=== PATIENT | female | born 1955 | race Caucasian/White ===

== ENCOUNTER 2016-11-27 07:52 | Inpatient (IN) | payer OTHER ==
[~2016-11-27 07:52] MED LIST: ACETAMINOPHEN 325 MG TAB PO ONE; CALCIUM CHLORIDE 1 GM/10 ML INJ ONE; CEFAZOLIN 2 GM/DEXTR 100 ML IV ONE; CHLORHEXIDINE GLUC HIBICLENS 118 ML BTL TP ONE; DEXAMETHASONE 4 MG/ML VIAL IVP ONE; FAMOTIDINE 20 MG TAB PO ONE; ROPI/epiNEPH/KETOROLAC JOINT COCKTAIL IU ONE; SKIN ADHESIVE (DERMABOND) 1 EACH TP ONE; THROMBIN (RECOMBINANT) 5,000 UNIT VIAL TP ONE; ceFAZolin 1 GM/5 ML SYR ONE
[2016-11-27] MEDS ORDERED: LIDOCAINE 1% 5 ML SDV ONE (08:12)
[2016-11-27] MEDS ORDERED: ACETAMINOPHEN 325 MG TAB ONE (08:33)
[2016-11-27] MEDS ORDERED: CEFAZOLIN 2 GM/DEXTROSE/100 ML BAG IV ONE (08:33)
[2016-11-27] MEDS ORDERED: DEXAMETHASONE 4 MG/ML VIAL ONE (08:33)
[2016-11-27] MEDS ORDERED: FAMOTIDINE 20 MG TAB ONE (08:34)
[2016-11-27] MEDS ORDERED: CHLORHEXIDINE GLUC HIBICLENS 118 ML BTL TP ONE (08:34)
[2016-11-27] MEDS ORDERED: LIDOCAINE 1% 5 ML SDV ID PRN (08:46)
[2016-11-27] MEDS ORDERED: LR 1,000 ML IV ONE (08:46)
[2016-11-27] MEDS ORDERED: LIDOCAINE 2% 100 MG/5 ML SYR IVP ONE (09:27)
[2016-11-27] MEDS ORDERED: PROPOFOL/EMULSION 500 MG/50 ML BOTTLE IV ONE ×2 (09:27→12:23)
[2016-11-27] MEDS ORDERED: TEMAZEPAM 15 MG CAP PO PRN (10:47)
[2016-11-27] MEDS ORDERED: PROMETHAZINE HCL 25 MG/ML VIAL IVP PRN (10:47)
[2016-11-27] MEDS ORDERED: ONDANSETRON 4 MG/2 ML VIAL IVP PRN (10:47)
[2016-11-27] MEDS ORDERED: DIPHENOXYLATE/ATROPINE LOMOTIL 1 TAB PO PRN (10:47)
[2016-11-27] MEDS ORDERED: ONDANSETRON DISINTEGRATING 4 MG TAB PO PRN (10:47)
[2016-11-27] MEDS ORDERED: diphenhydrAMINE 25 MG CAP PO PRN (10:47)
[2016-11-27] MEDS ORDERED: PROMETHAZINE HCL 25 MG SUPPR PR PRN (10:47)
[2016-11-27] MEDS ORDERED: BISACODYL 10 MG SUPP PR PRN (10:47)
[2016-11-27] MEDS ORDERED: LACTULOSE 20 GM/30 ML UDCUP PO PRN (10:47)
[2016-11-27] MEDS ORDERED: traMADol 50 MG TAB PO PRN (10:47)
[2016-11-27] MEDS ORDERED: MAGNESIUM HYDROXIDE 30 ML UDCUP PO PRN (10:47)
[2016-11-27] MEDS ORDERED: PHARMACY PAIN CONSULT 1 EA MISC PRN (10:47)
[2016-11-27] MEDS ORDERED: POLYETHYLENE GLYCOL 3350 17 GM PKT PO PRN (10:47)
[2016-11-27] MEDS ORDERED: CYCLOBENZAPRINE 10 MG TAB PO PRN (10:47)
[2016-11-27] MEDS ORDERED: CALCIPOTRIENE TP PRN (10:52)
[2016-11-27] MEDS ORDERED: BETAMETHASONE TP PRN (10:52)
[2016-11-27] MEDS ORDERED: CLOBETASOL PROPIONATE TP PRN (10:52)
[2016-11-27] MEDS ORDERED: LR 1,000 ML IV SCH (11:00)
[2016-11-27] MEDS ORDERED: MIDAZOLAM 2 MG/2 ML VIAL ONE (11:00)
[2016-11-27] MEDS ORDERED: fentaNYL 100 MCG/2 ML INJ ONE ×2 (12:18→13:28)
[2016-11-27] MEDS ORDERED: HYDROmorphONE/DILAUDID 1 MG/ML SYR ONE (13:53)
--- NOTE | 2016-11-27 14:23 | DX ---
Two Views Right Knee: History: Postoperative followup. Comparison: None available. Findings: Postoperative changes of total knee arthroplasty are noted. Alignment is anatomic. No compl ication is seen. Impression: Status post total knee arthroplasty with no visible complications.
--- NOTE | 2016-11-27 14:38 | GOP ---
[f rep st] OPERATIVE REPORT DATE OF OPERATION: 11/27/2016 SURGEON: Mala Marcial MD SOCIAL SCIENTIST: Elieser Ocasio CFA ANESTHESIA: General with spinal. PREOPERATIVE DIAGNOSIS: Severe osteoarthritis, right knee. POSTOPERATIVE DIAGNOSIS: Severe osteoarthritis, right knee. PROCEDURE PERFORMED: Right total knee arthroplasty. FINDINGS: Preoperative x-rays of the patient's right knee demonstrated severe lateral compartment ar throsis with moderate patellofemoral and medial compartment arthrosis. At the time of surgery, this finding was confirmed. The patient had complete loss of the articular cartilage in the lateral atilio rtment. There was also severe wear of the patellofemoral joint. A [employer] Journey II total knee arthroplasty was implanted. A size 4 Oxinium coated femoral component was cemented into place, and a size 3 tibial base plate was utilized. This was also cemented into place. A 10 mm thick Jour shawn II cross-linked polyethylene insert was used in the metal backing of the tibia. A size 35 round patellar component was also cemented into place. Following implantation of the components, the knee achieved full extension and 135 degrees of flexion on the table. The patella tracked well throughout a range of motion. There was nice correction of the preoperative valgus deformity of the knee. ESTIMATED BLOOD LOSS: Less than 100 cc. DESCRIPTION OF PROCEDURE: The patient was taken to the operating room and placed in a supine positio n on the operating table. Following induction of adequate general and spinal anesthesia, the knee an d leg were prepped and draped in the usual sterile manner. The patient received 1 g of IV Ancef. Th e leg was elevated and exsanguinated, and the tourniquet inflated to 300 mmHg. The [facility] leg holde r was used throughout the procedure for positioning. A midline incision was made, extending from 2 f ingerbreadths above the superior pole of the patella distally to the tibial tubercle. Incision was c arried down through the subcutaneous tissue to the retinaculum of the knee. A medial parapatellar ar throtomy was performed. The patella was everted laterally, and the thickness of the patella was daly ured. An 8 mm thick poly cut was taken from the 20 mm patella. The patella was then placed in the l ateral gutter. The distal femoral drill hole was made, and then the intramedullary sean was placed in the femur for positioning of the distal femoral cutting block. Once it was positioned appropriately , it was pinned, and the distal femoral cut was made at +2 position. The cutting block was removed, and the femur was sized. The size 4 component was chosen as the best fit. The size 4 cutting block was then placed on the distal femur, and the anterior-posterior and chamfer cuts were made. The 4 tr ial component was placed on the distal femur, and then the notch was cleared with the reamer followed by the box osteotome. The femoral component was removed, and our attention was turned to the tibia. Intramedullary referencing was utilized on the tibial side as well. A drill hole was placed in the proximal tibia, and then the intramedullary guide was inserted, and the tibial cutting block was pos itioned based on a 9 mm thick lollipop insert, which was used to determine the thickness of the tibia l cut. The tibial guide was positioned and pinned, and then the tibial cut was made. The medial and lateral meniscus were excised. A large, loose body was removed from the posterior knee. The tibial component was then sized, and a size 3 was felt to be the best match, so it was pinned into place, a nd a trial reduction was performed with the components. A trial was performed with a 9 mm and a 10 m m thick polyethylene. The best fit was noted with a 10 mm thick polyethylene. The femoral component was then removed, and the keel punch was used in the tibia. The tibial trial was removed. The pantoja lla was drilled. In preparation for implantation. All of the bony surfaces were thoroughly irrigate d and dried, and then the cement was mixed. The tibial component was cemented followed by the femur and the patella. Pressure was held on all the components while the cement hardened. Excess cement w as removed from around the edges of the components. Once the cement was hard, the trial insert was r emoved from the tibia, and the 10 mm thick polyethylene was opened and inserted. The wound was thoro ughly irrigated, and the joint cocktail was placed in the posterior and anterior aspects of the joint . The retinaculum of the knee was closed using #2 FiberWire in an interrupted fashion. The tourniqu et was deflated, and hemostasis was obtained using the Bovie. Platelet gel was injected into the kiana p and superficial portions of the wound to enhance wound healing. The subcutaneous tissue was closed using 2-0 Vicryl, followed by 4-0 Vicryl in a running subcuticular fashion. Steri-Strips and steril e dressings were applied. The patient tolerated the procedure well. There were no complications. ESTIMATED BLOOD LOSS: Minimal. COUNTS: Final sponge and needle counts were correct. DISPOSITION: The patient was transported to the recovery room in good condition. /[id number]/MODL
[2016-11-27] MEDS: ACETAMINOPHEN 325 MG TAB PO SCH ×3 (15:42→23:22)
[2016-11-27] MEDS: oxyCODONE IR 5 MG TAB PO PRN ×2 (15:45→21:51)
[2016-11-27] MEDS: FAMOTIDINE 20 MG TAB PO SCH (20:13)
[2016-11-27] MEDS: ASPIRIN 325 MG TAB PO SCH (20:13)
[2016-11-27] MEDS: SENNOSIDES/DOCUSATE SODIUM TAB PO SCH (20:14)
[2016-11-27] MEDS: ceFAZolin 2 GM/DEXTROSE 100 ML IV SCH (20:14)
[2016-11-27 23:26] VITALS: RESP 16
[2016-11-28] MEDS: oxyCODONE IR 5 MG TAB PO PRN ×4 (03:11→13:56)
[2016-11-28] MEDS: ceFAZolin 2 GM/DEXTROSE 100 ML IV SCH (03:12)
[2016-11-28 05:36] LABS: HEMATOCRIT 33.6 % (38.0-47.0); HEMOGLOBIN 10.8 g/dL (12.6-16.3)
[2016-11-28] MEDS: ACETAMINOPHEN 325 MG TAB PO SCH ×2 (05:58→12:02)
[2016-11-28] MEDS: SENNOSIDES/DOCUSATE SODIUM TAB PO SCH (08:52)
[2016-11-28] MEDS: ASPIRIN 325 MG TAB PO SCH (08:53)
[2016-11-28] MEDS: FAMOTIDINE 20 MG TAB PO SCH (08:53)
[2016-11-28 09:00] VITALS: BP 109/56; PULSE 75; TEMP 97.7; O2SAT 95
[2016-11-28] MEDS ORDERED: FERROUS SULFATE 140 MG TAB.ER PO SCH (09:00)
[2016-11-28] MEDS ORDERED: PROGESTERONE,MICR 100 MG CAP PO SCH (09:00)
[2016-11-28] MEDS ORDERED: ESCITALOPRAM OXALATE 10 MG TAB PO SCH (09:00)
--- NOTE | 2016-11-28 13:03 | SOAPPROG ---
SOAP Progress Note Assessment/Plan: Assessment/Plan: 61y/o female POD#1 right TKA - stable and doing well - minimal pain, on oxycodone - has worked with PT - anxious to go home, f/u in 1 week, pt to call with any issues/concerns 11/28/16 13:00 Subjective: Minimal pain. Tolerated PT well, worked on stairs. Feeling less pain than pre- op. Very pleased with progress and anxious to go home Objective: Vital Signs Temp Pulse Resp BP Pulse Ox 36.5 C 75 16 109/56 L 95 11/28/16 08:00 11/28/16 08:00 11/28/16 08:00 11/28/16 08:00 11/28/16 08:00 Laboratory Results 11/28/16 04:57 11/27/16 11/28/16 11/29/16 05:59 05:59 05:59 Intake Total 3897 Output Total 2050 300 Balance 1847 -300 NAD, well appearing incision CDI, no erythema or active drainage dressing replaced, KRISTA bandage placed over knee minimal swelling ICD10 Worksheet Patient Problems: Problems Problem Status Diagnosed Arthritis of knee Acute - ICD10 Problem Qualifiers (1) Arthritis of knee
--- NOTE | 2016-11-28 13:13 | PDIAF ---
- Diagnosis Code Status: Full Code - Medication Management Discharge Medications: Medications to Continue on Transfer Acetaminophen [Tylenol Arthritis] 650 mg PO HS 11/15/16 [Last Taken 11/26/16 22: 00] Calcipotriene/Betamethasone [Taclonex Ointment] 1 kunal TP DAILY PRN 11/15/16 [ Last Taken 11/13/16] Clobetasol Propionate [Clobex] 1 kunal TP DAILY PRN 11/15/16 [Last Taken 11/13/16] Escitalopram Oxalate [Lexapro] 5 mg PO DAILY 11/15/16 [Last Taken 11/26/16 22:00 ] Progesterone,Micronized [Progesterone] 100 mg PO DAILY 11/15/16 [Last Taken 22:00] diphenhydrAMINE [Benadryl 25 MG (*)] 25 mg PO HS PRN 11/15/16 [Last Taken ] Estradiol [Vivelle-Dot 0.025MG (*)] 0.025 mg TD SUTH@0800 11/27/16 [Last Taken 11/26/16] Discharge Medications: Refer to the Discharge Home Medication list for PRN reason. PICC Care - Routine: N/A - Orders Services needed: Physical Therapy, Occupational Therapy Diet Recommendation: no restrictions on diet Diet Texture: Regular Texture Diet Josh Stockings Discontinue Date: continue active care x 14 days post-op Wound Care Instructions: keep incision clean and dry. keep covered with tegaderm
[2016-11-30] MEDS ORDERED: ESTRADIOL TD SCH (08:00)
[2016-11-30] MEDS ORDERED: ESTRADIOL VIVELLE 0.025 MG PATCH TD SCH (15:05)
== END 2016-11-28 14:17 | disposition home health service (06) | DRG 470 ==
LOC: F3N 07:52
PROVIDERS: ADMIT Orthopaedic Surgery; ATTEND Orthopaedic Surgery
DX: M17.11 Unilateral primary osteoarthritis, right knee (principal); M48.02 Spinal stenosis, cervical region
CPT/HCPCS: 97110-GP; 97116-GP; 97161-GP; 97165-GO; 97530-GP; C1713; J0171; J0690; J1100; J1170; J1885; J2001; J2250; J2405; J2704; J2795; J3010

== ENCOUNTER → 2017-01-25 | Outpatient (CLI) | payer OTHER ==
[~2017-01-25] MED LIST changes: -ACETAMINOPHEN 325 MG TAB PO ONE; -CALCIUM CHLORIDE 1 GM/10 ML INJ ONE; -CEFAZOLIN 2 GM/DEXTR 100 ML IV ONE; -CHLORHEXIDINE GLUC HIBICLENS 118 ML BTL TP ONE; -DEXAMETHASONE 4 MG/ML VIAL IVP ONE; -FAMOTIDINE 20 MG TAB PO ONE; +GADOBUTROL 10 ML VIAL IVP ONE; -ROPI/epiNEPH/KETOROLAC JOINT COCKTAIL IU ONE; -SKIN ADHESIVE (DERMABOND) 1 EACH TP ONE; -THROMBIN (RECOMBINANT) 5,000 UNIT VIAL TP ONE; -ceFAZolin 1 GM/5 ML SYR ONE
== END ==
LOC: FIMAGING 18:41
PROVIDERS: ATTEND Psychiatry & Neurology Neurology
DX: M46.96 Unspecified inflammatory spondylopathy, lumbar region (principal); M48.06 Spinal stenosis, lumbar region; M51.36 Other intervertebral disc degeneration, lumbar region; M46.97 Unspecified inflammatory spondylopathy, lumbosacral region
CPT/HCPCS: A9585

== ENCOUNTER → 2017-05-18 | Outpatient (CLI) | payer OTHER | LOC: CIMAGING 08:00 | PROVIDERS: ATTEND Registered Nurse | DX: D25.9 Leiomyoma of uterus, unspecified (principal) | CPT/HCPCS: 76856-PO ==

== ENCOUNTER → 2017-08-31 | Outpatient (CLI) | payer OTHER | LOC: FIMAGING 13:35 | PROVIDERS: ATTEND Family Medicine | DX: Z12.31 Encounter for screening mammogram for malignant neoplasm of breast (principal) | CPT/HCPCS: G0202 ==

== ENCOUNTER → 2018-09-03 | Outpatient (CLI) | payer OTHER | LOC: FIMAGING 11:02 | PROVIDERS: ATTEND Family Medicine | DX: Z12.31 Encounter for screening mammogram for malignant neoplasm of breast (principal) ==